=== PATIENT | male | born 1945 | race Caucasian/White ===

== ENCOUNTER 2020-05-26 13:48 | Emergency (ER) | payer MEDICARE, SELFPAY ==
[2020-05-26 13:53] VITALS: BP 122/42; PULSE 64; RESP 20; TEMP 36.9; O2SAT 100
--- NOTE | 2020-05-26 14:16 | ED.EYEPROB ---
HPI - Eye Problem General Chief complaint: Eye Problems Stated complaint: sore by left eye Time Seen by Provider: 05/26/20 14:05 Source: patient Mode of arrival: ambulatory Limitations: no limitations History of Present Illness HPI Narrative: Howard Griffin is 74 yo male with a PMH of CHF, A. fib, chronic anticoagulation, HTN. Comes to express care with a small abscess of the outer canthus of the left eye. Mild redness and tender to touch, no eyelid or infra orbital cellulitis or edema-has been present for 4 days. Patient has history of chronic conditions such as CHF and takes a diuretic Related Data Home Medications Medication Instructions Recorded Confirmed aspirin [Adult Low Dose Aspirin] 81 mg PO DAILY 05/26/20 05/26/20 atorvastatin 05/26/20 carvedilol 05/26/20 furosemide 05/26/20 sacubitril-valsartan [Entresto] 05/26/20 Allergies Allergy/AdvReac Type Severity Reaction Status Date / Time ibuprofen Allergy Unknown Unknown Verified 10/11/18 08:53 shrimp Allergy Unknown Verified 10/11/18 08:54 SHRIMP Allergy Unknown SEVERE Uncoded 05/06/18 12:29 VOMITING Review of Systems Review of Systems: Narrative: CONSTITUTIONAL: Denies fever, chills, sweats. EYES: Denies visual changes, redness, discharge. ENT: Denies rhinorrhea, congestion, sore throat, otalgia. CARDIOVASCULAR: Denies chest pain, palpitations, edema. RESPIRATORY: Denies dyspnea, wheezing, cough GASTROINTESTINAL: Denies abdominal pain, nausea, vomiting, diarrhea. GENITOURINARY: Denies dysuria, hematuria, abnormal discharge SKIN: Denies rash or itching. Left eye other canthus abscess NEUROLOGIC: Denies numbness, or focal weakness. PSYCHIATRIC: Denies anxiety or depression. [facility] Past Medical History Medical History A-fib CHF (congestive heart failure) Chronic anticoagulation HTN (hypertension) Family History Family History Other Cerebrovascular accident Family history of arthritis Family history of congenital heart disease Hypertension Social History Social History Smoking status: Never smoker Second hand tobacco smoke exposure: No Alcohol intake: never Comments At time of signature, I agree with nursing past medical, surgical, social and family history. There is no relevant family history pertinent to the presenting complaint. Exam Narrative: Exam Narrative: GENERAL: This is a well-nourished, well-developed patient, in mild distress. HEAD: normocephalic, atraumatic. EYES: Sclera clear/white. Vision is grossly intact. EARS: External ears normal, Hearing grossly intact. NOSE: External nose normal without nasal discharge, nares without redness, no rhinorrhea. THROAT: Mucous membranes moist, NECK: Neck supple, non-tender CARDIOVASCULAR: Irregular rate and rhythm without murmurs, gallops, or rubs. RESPIRATORY: Clear to auscultation. Breath sounds equal bilaterally. No wheezes, rales, or rhonchi. GASTROINTESTINAL: Abdomen soft, non-tender, SKIN: warm, intact with no suspicious lesions or rash, good texture and turgor. Left outer canthus small abscess one by one with tenderness and looks to be pus filled NEURO: awake, alert, and oriented to person, place and time. There were no obvious focal neurologic abnormalities. Steady gait EXTREMITIES: Normal range of motion. BACK: Nontender without deformity Course Course Emergency Course: I&D of abscess and started on Keflex Follow-up with primary care physician Vital Signs Vital signs: Vital Signs Temperature 98.5 F 05/26/20 13:53 Pulse Rate 64 05/26/20 13:53 Respiratory Rate 05/26/20 13:53 Blood Pressure 122/42 L 05/26/20 13:53 Pulse Oximetry 100 05/26/20 13:53 Temperature 98.5 F 05/26/20 13:53 Pulse Rate 64 05/26/20 13:53 Respiratory Rate 05/26/20 13:53 Blood Pr
== END 2020-05-26 14:34 | disposition home or self-care (01) ==
PROVIDERS: Emergency Provider Nurse Practitioner; PCP Family Medicine
DX: L02.01 Cutaneous abscess of face (principal); I48.91 Unspecified atrial fibrillation; I11.0 Hypertensive heart disease with heart failure; I50.9 Heart failure, unspecified; Z79.01 Long term (current) use of anticoagulants
CPT/HCPCS: 10160; 99213; G0463

== ENCOUNTER 2020-08-25 08:45 | Outpatient (NON) | payer MEDICARE, SELFPAY ==
[2020-08-25 23:02] LABS: SARS-CoV-2 RNA PCR Negative
== END 2020-08-25 08:46 ==
PROVIDERS: PCP Family Medicine; Visit Provider Family Medicine
DX: Z20.828 Contact with and (suspected) exposure to other viral communicable diseases (principal); R51.9 Headache, unspecified
CPT/HCPCS: 87635; C9803; U0003

== ENCOUNTER → 2020-12-13 14:15 | Outpatient (CLI) | payer MEDICARE, SELFPAY ==
--- NOTE | ~2020-12-13 | XR_ITS ---
EXAMINATION: XR knee RT 3V DATE: 12/13/2020 14:30 INDICATION: Right knee pain. TECHNIQUE: 3 views of right knee on 4 radiographs were obtained. COMPARISON: Right knee radiographs 05/17/2018 FINDINGS: Bone alignment is normal. No fracture. There is mild osteoarthritis of medial and patellofe moral compartments. No knee joint effusion. IMPRESSION: 1. Mild right knee osteoarthritis. Reviewed, dictated and finalized at location A.
== END ==
PROVIDERS: PCP Family Medicine; Visit Provider Nurse Practitioner Family
DX: M17.11 Unilateral primary osteoarthritis, right knee (principal)
CPT/HCPCS: 73562

== ENCOUNTER 2022-12-11 12:32 | Outpatient (CLI) | payer MEDICARE, SELFPAY ==
[2022-12-11 20:01] LABS: Alanine Aminotransferase 24 U/L (6-50); Albumin Level 4.2 g/dL (3.5-5.1); Alkaline Phosphatase 104 U/L (38-126); Anion Gap 9 mmol/L (8-16); Aspartate Amino Transferase 21 U/L (17-59); Bilirubin,Total 0.9 mg/dL (0.2-1.3); Blood Urea Nitrogen 21 mg/dL (9-20); Calcium 8.9 mg/dL (8.4-10.2); Carbon Dioxide 27 mmol/L (22-30); Chloride 108 mmol/L (98-107); Estimated Glomerular Filt Rate > 60; Glucose 85 mg/dL (65-110); Potassium 4.3 mmol/L (3.4-5.0); Sodium 144 mmol/L (137-145)
[2022-12-14 19:58] LABS: PSA, Free 0.61 ng/mL; PSA, Total 2.7 ng/mL (<=4.0); Percent Free Prostate Spec Ag 23 % (>25)
== END 2022-12-11 12:33 | disposition home or self-care (01) ==
LOC: ANHGOSHLAB 12:33
PROVIDERS: PCP Family Medicine; Visit Provider Family Medicine
DX: R97.20 Elevated prostate specific antigen [PSA] (principal); E78.5 Hyperlipidemia, unspecified; I25.10 Atherosclerotic heart disease of native coronary artery without angina pectoris; I50.9 Heart failure, unspecified; R73.03 Prediabetes; I12.9 Hypertensive chronic kidney disease with stage 1 through stage 4 chronic kidney disease, or unspecified chronic kidney disease; N18.31 Chronic kidney disease, stage 3a
CPT/HCPCS: 36415; 80053; 83036; 84153; 84154

== ENCOUNTER 2023-02-05 06:05 | Emergency (ER) | payer MEDICARE, SELFPAY ==
--- NOTE | ~2023-02-05 | XR_ITS ---
Clinical Indication: Cough PA and lateral views of the chest: Comparison: 01/07/2019 Findings: The lungs are clear, without evidence of focal consolidation or pleural effusion. Cardiome diastinal silhouette is within normal limits. Bones and soft tissues are unremarkable. Impression: Normal chest. Reviewed, dictated and finalized at [facility]. Impression: Normal chest.
[2023-02-05 06:12] VITALS: BP 135/66; RESP 18; TEMP 36.1; O2SAT 98
--- NOTE | 2023-02-05 06:13 | ECG_ITS ---
Measurements Intervals [place] Rate: 59 P: 68 AL: 214 QRS: -43 QRSD: 162 T: 54 QT: 448 QTc: 445 Interpretive Statements SINUS BRADYCARDIA WITH FIRST DEGREE AV BLOCK LEFT AXIS DEVIATION LEFT BUNDLE BRANCH BLOCK ABNORMAL ECG NO PREVIOUS ECG AVAILABLE FOR COMPARISON Electronically Signed On 02-05-2023 6:43:14 CDT by Joe Mercer D.O.
[2023-02-05 07:01] LABS: Basophils Percent Auto 0.6 % (0.2-1.2); Eosinophils Absolute Auto 0.3 K/mm3 (0-0.3); Eosinophils Percent Auto 5.1 % (0-4.4); Hematocrit 39.7 % (42.0-52.0); Hemoglobin 12.9 g/dL (14.0-18.0); Immature Granulocyte Absolute 0.01 K/mm3 (0.00-0.031); Immature Granulocyte Percent A 0.2 % (0-0.5); Lymphocytes Absolute Auto 1.36 K/mm3 (0.9-3.2); Lymphocytes Percent Auto 26.8 % (18.3-44.2); Mean Corpuscular HGB Conc 32.5 g/dl (32-36); Mean Corpuscular Hemoglobin 32.5 pg (26-34); Mean Platelet Volume 11.9 fl (7.4-10.4); Monocytes Absolute Auto 0.6 K/mm3 (0.1-0.6); Monocytes Percent Auto 11.2 % (2.6-8.5); Neutrophils Absolute Auto 2.9 K/mm3 (1.3-6.7); Neutrophils Percent Auto 56.1 % (45.5-73.1); Platelet Count Result 212 k/mm3 (150-375); Red Blood Count 3.97 M/mm3 (4.6-6.20); Red Cell Distribution Width 14.5 % (11.5-14.5); White Blood Count 5.1 K/mm3 (4.5-10.0)
[2023-02-05 07:12] LABS: Alanine Aminotransferase 34 U/L (6-50); Albumin Level 4.1 g/dL (3.5-5.1); Alkaline Phosphatase 99 U/L (38-126); Anion Gap 8 mmol/L (8-16); Aspartate Amino Transferase 34 U/L (17-59); Bilirubin,Total 0.9 mg/dL (0.2-1.3); Blood Urea Nitrogen 17 mg/dL (9-20); Calcium 8.4 mg/dL (8.4-10.2); Carbon Dioxide 28 mmol/L (22-30); Chloride 105 mmol/L (98-107); Estimated CRCL calculation 65 ml/min; Estimated Glomerular Filt Rate > 60; Glucose 110 mg/dL (65-110); Lipase 57 U/L (23-300); Sodium 141 mmol/L (137-145)
[2023-02-05 07:23] LABS: Troponin I < 0.012 ng/mL (0.000-0.034)
[2023-02-05 07:31] LABS: Prothrombin Time 13.8 Seconds (11.1-14.7)
[2023-02-05 07:33] LABS: Partial Thromboplastin Time 27.9 SECONDS (22.3-36.8)
--- NOTE | 2023-02-05 08:55 | ED.GENADULT ---
HPI - General Adult General Chief complaint: Chest Pain Stated complaint: reports rattling chest with cough Time Seen by Provider: 02/05/23 07:00 History of Present Illness HPI narrative: Patient is a 77-year-old male who presents ER with cough. Reports ongoing over the last week. Feels like there is a rattling in his chest when he lies down. No dyspnea or orthopnea. Has history of CHF. Reports 3 pound weight gain over the last few days. No lower extremity edema. Denies history of pulmonary edema. No exertional chest pain or chest pressure. No dyspnea. He is without fevers or chills or sweats. Has mild sore throat. Related Data Home Medications Medication Instructions Recorded Confirmed aspirin 81 mg tablet,delayed 81 mg PO DAILY 05/26/20 09/02/22 release (Adult Low Dose Aspirin) atorvastatin 80 mg tablet 80 mg PO QPM 05/29/20 09/02/22 carvedilol 6.25 mg tablet 3.25 mg PO BID 07/18/22 09/02/22 furosemide 40 mg tablet 20 mg PO DAILY 07/18/22 09/02/22 Allergies Allergy/AdvReac Type Severity Reaction Status Date / Time ibuprofen Allergy Unknown Unknown Verified 02/05/23 06:22 shrimp AdvReac Severe severe Verified 02/05/23 06:22 vomiting Review of Systems Review of Systems: All systems reviewed & are unremarkable except as noted in HPI and below Constitutional: Constitutional: Denies chills, Denies fatigue and Denies fever(s) ENT: Reports nasal congestion and Reports sore throat Cardiovascular: Cardiovascular: Denies chest pain, Denies rapid heart rate and Denies radiating jaw, neck or arm pain Respiratory: Respiratory: Reports chest congestion, Reports cough, Denies dyspnea and Denies wheezing Gastrointestinal: Gastrointestinal: Denies abdominal pain, Denies nausea and Denies vomiting [facility] Past Medical History Medical History Benign prostatic hyperplasia 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 EF 30% CHF (congestive heart failure) (~03/2016) CKD (chronic kidney disease) stage 3, GFR 30-59 ml/min COVID-19 (~02/2022) Dyslipidemia Essential (primary) hypertension Leg injury (~2015) Circular saw right thigh muscle, above knee Prediabetes Surgical History Surgical History History of hand surgery (~1989) Excision of cyst on dorsum of right hand History of heart artery stent (~2015) History of left inguinal hernia repair (~1994) Hx of cardiac cath (~04/2016) Family History Family History Mother Cerebrovascular accident Dementia Other Family history of arthritis Family history of congenital heart disease Hypertension Social History Social History Smoking status: Never smoker Second hand tobacco smoke exposure: No Alcohol intake: never Substance use: never Substance use type: does not use Lack of Transportation: No Lack of Food: Never True Current Housing: I Have Housing Concerned About Future Housing: No Difficulty Paying Gas/Electric Bills: No Difficulty Paying for Meds: YES Currently Unemployed: No Education: Master's Degree or Higher Difficulty w/ Childcare or Family Care: No Living arrangements: with family Occupation/Education: retired Gender identity (if verbalized by the patient): Male Sexual Orientation (if Verbalized by the Patient): Straight or Heterosexual Agree to blood products: Yes Exam Narrative: GENERAL: Well-appearing, well-nourished, and in no acute distress. HEAD: Normocephalic, atraumatic. EYES: PERRL and EOMI. ENT: Mucous membranes moist. CHEST: Clear to auscultation. No respiratory distress. HEART: Regular rate and rhythm. Normal peripheral pulses. ABDOMEN: Soft, nontender, nondistended. EXTREMITIES: Normal range of motion. No edema. SKIN: Warm, dry, no rash. NEURO: Alert and oriented x3. PSYCH: No
[2023-02-05 09:09] LABS: NT Pro B Type Natriuretic Pept 439 pg/mL (19.9-100)
[2023-02-05 09:28] VITALS: BP 132/76; PULSE 58; RESP 16; O2SAT 98
== END 2023-02-05 09:29 | disposition home or self-care (01) ==
PROVIDERS: Emergency Medicine; Emergency Provider Emergency Medicine; PCP Family Medicine
DX: B34.9 Viral infection, unspecified (principal); I25.10 Atherosclerotic heart disease of native coronary artery without angina pectoris; I13.0 Hypertensive heart and chronic kidney disease with heart failure and stage 1 through stage 4 chronic kidney disease, or unspecified chronic kidney disease; I50.9 Heart failure, unspecified; N18.30 Chronic kidney disease, stage 3 unspecified; E78.5 Hyperlipidemia, unspecified
CPT/HCPCS: 36415; 71046; 80053; 83690; 83880; 84484; 85025; 85610; 85730; 93005; 99284

== ENCOUNTER 2024-05-03 14:10 | Outpatient (CLI) | payer MEDICARE, SELFPAY ==
[2024-05-03 19:33] LABS: Alanine Aminotransferase 20 U/L (6-50); Alkaline Phosphatase 97 U/L (38-126); Anion Gap 11 mmol/L (4-12); Aspartate Amino Transferase 48 U/L (17-59); Bilirubin,Total 1.1 mg/dL (0.2-1.3); Blood Urea Nitrogen 19 mg/dL (9-20); Calcium 8.9 mg/dL (8.4-10.2); Carbon Dioxide 28 mmol/L (22-30); Chloride 101 mmol/L (98-107); Estimated Glomerular Filt Rate > 60; Glucose 88 mg/dL (65-110); Potassium 3.5 mmol/L (3.4-5.0); Sodium 140 mmol/L (137-145)
[2024-05-03 20:06] LABS: Hemoglobin A1C 6.2 % (<5.7)
== END 2024-05-03 14:11 | disposition home or self-care (01) ==
LOC: ANHGOSHLAB 14:11
PROVIDERS: PCP Family Medicine; Visit Provider Family Medicine
DX: R73.03 Prediabetes (principal); I10 Essential (primary) hypertension
CPT/HCPCS: 36415; 80053; 83036

== ENCOUNTER 2024-11-03 15:53 | Outpatient (CLI) | payer MEDICARE, SELFPAY ==
--- NOTE | ~2024-11-03 | XR_ITS ---
HISTORY: M54.50 - Low back pain, unspecified COMPARISON: None. TECHNIQUE: 3 view lumbar spine. FINDINGS: Lumbar vertebral bodies are normally aligned. There are 5 non-rib bearing lumbar vertebral bodies. Vertebral body heights are well maintained. Degenerative disease is noted with osteophyte formation, and disc space narrowing primarily at the le ta of T12/L1 and L1/L2. Grade 1 anterolisthesis of L5 onto S1. There are no lytic or sclerotic lesions. Densely calcified atherosclerotic disease within the infrarenal abdominal aorta, as detailed above. Remaining paraspinal soft tissues are otherwise unremarkable. IMPRESSION: Degenerative disease, without acute compression fracture, as detailed above. Reviewed, dictated and finalized at location A. [facility]
== END 2024-11-03 15:54 | disposition home or self-care (01) ==
LOC: GOSHIMG 15:54
PROVIDERS: PCP Family Medicine; Visit Provider Family Medicine
DX: M51.35 Other intervertebral disc degeneration, thoracolumbar region (principal); M51.369 Other intervertebral disc degeneration, lumbar region without mention of lumbar back pain or lower extremity pain
CPT/HCPCS: 72100

== ENCOUNTER 2025-05-16 14:17 | Outpatient (CLI) | payer MEDICARE, SELFPAY ==
--- OUTSIDE RECORDS SUMMARY | 2025-05-16 14:37 | XMS_ITS | Clinical Summary ---
Author Organization [facility] Address [address], [address] [address] Phone Care Team Providers Care Infertility Medical Assistant Name Role Phone Stephen Martinez DO Unavailable [phone] Morena Jarquin MD Primary Care Provider Medications atorvastatin (LIPITOR) 20 MG Tablet Take 20 mg by mouth daily. Active sacubitril-valsa rtan (ENTRESTO) 49-51 MG Tablet Take 1 Tab by mouth 2 times daily. Active carvedilol (COREG) 6.25 MG Tablet Take 6.25 mg by mouth 2 times daily. Active furosemide (LASIX) 40 MG Tablet Take 40 mg by mouth daily. Active aspirin EC 81 MG Tablet Delayed Response Take 81 mg by mouth daily. Active Immunizations Immunization Administration Dates Next Due Covid-19, Mrna, Lnp-s, PF, 1 00 mcg/0.5 mL Dose (Moderna) 12/17/2020,11/14/2020 Social History Tobacco Use Types Packs/Day Years Used Date Smoking Tobacco: Never Assessed Sex and Gender Information Value Date Recorded Sex Assigned at Not on file Legal Sex Male 10:24 AM CDT Gender Identity Not on file Sexual Orientation Not on file Plan of Treatment Health Maintenance Due Date Last Done Comments Hepatitis C Virus (HCV) Screening 1945 Zoster Immunization (1 of 2) 1994 Respiratory Syncytial Virus (RSV) Immunization (Adult) (1 - 1-dose 75+ series) 2019 Pneumococcal Immunization (5 0+ years) (2 of 2 - PCV20 or PCV21) 06/29/2021 06/29/2020 SARS-COV-2 Immunization ( season) 2024 12/17/2020, 11/14/2020 Influenza Immunization (#1) 2025 06/29/2020 Colonoscopy Discontinued 05/12/2018 Colorectal Cancer Screening Discontinued DTaP/Tdap/Td Immunization Discontinued 06/29/2020 Pneumococcal Immunization Combined Discontinued 06/29/2020 TdaP Immunization Completed 06/29/2020 Cologuard Discontinued Hepatitis B Immunization Aged Out No longer eligible based on patient's age to complete this topic Human Papillomavirus (HPV) Immunization Aged Out No longer eligible based on patient's age to complete this topic Immunochemical Fecal Occult Blood Discontinued Meningococcal Immunization (ACWY) Aged Out No longer eligible based on patient's age to complete this topic Rotavirus Immunization Aged Out No lo nger eligible based on patient's age to complete this topic Procedures Procedure Name Priority Date/Time Associated Diagnosis Comments COLONOSCOPY Routine 05/12/2018 from Last 3 Months or Most Recently Relevant to Health Maintenance Results * COLONOSCOPY (05/12/2018) Stephen Martinez DO PROCEDURE/MINOR SURGICAL ORDERA BLES Final Result from Last 3 Months or Most Recently Relevant to Health Maintenance Insurance MEDICARE C [employer] Care Teams Infertility Medical Assistant Relationship Specialty Start Date End Date Morena Jarquin MD PCP - General Family Medicine 04/06/18 Stephen Martinez DO Gastroenterology 07/01/16
--- OUTSIDE RECORDS SUMMARY | 2025-05-16 14:37 | XMS_ITS | Clinical Summary ---
Author Organization [facility] Address [address] [place] [address] Care Team Providers Care Signal Constructor Name Role Phone Morena Jarquin MD Primary Care Provider Allergies Active Allergy Reactions Criticality Noted Date Comments Ibuprofen Rash,Stomach upset High multiple mouth sores Shellfish Containing Products Shrimp Nausea & Vomiting Low Medications aspirin 81 mg tablet Take 1 tablet (81 mg total) by mouth daily Active tamsulosin (FLOMAX) 0.4 mg extended release capsule Take 1 capsule (0.4 mg total) by mouth daily 90 capsule 11 1 Active calcium citrate-vitami n D3 (CITRACAL WITH D) 315 mg-6.25 mcg (250 unit) per tablet Take 1 tablet by mouth daily Active cyanocobalamin (Vitamin B-12) 1,000 mcg sublingual tablet Take 1 tablet (1,000 mcg total) by mouth every other day 4 Active atorvastatin (LIPITOR) 80 mg tablet TAKE 1 TABLET EVERY EVENING 90 tablet 3 5 Active furosemide (LASIX) 40 mg tablet Take 1 tablet (40 mg total) by mouth daily 90 tablet 3 5 12/15/19 26 Active carvediloL (COREG) 6.25 mg tablet Take 1 tablet (6.25 mg total) by mouth 2 (two) times a day with meals 60 tablet 11 5 Active finasteride (PROSCAR) 5 mg tablet Take 1 tablet (5 mg total) by mouth daily Active Entresto 49-51 mg tablet TAKE 1 TABLET TWICE DAILY 180 tablet 3 5 Active clopidogreL (PLAVIX) 75 mg tablet TAKE 1 TABLET EVERY DAY 90 tablet 3 5 Active clopidogreL (PLAVIX) 75 mg tablet TAKE 1 TABLET EVERY DAY 90 tablet 3 4 05/10/20 25 Discontinued Entresto 49-51 mg tablet TAKE 1 TABLET TWICE DAILY 180 tablet 3 5 05/03/20 25 Discontinued Active Problems Problem Noted Date Diagnosed Date Nonischemic cardiomyopathy 05/08/2023 Incontinence of feces 03/10/2023 Essential hypertension 05/02/2022 Other hyperlipidemia 05/02/2022 Abnormal stress test 03/28/2022 Overview (03/28/2022): Added automatically from request for surgery [id number] COVID 08/12/2021 Urinary frequency 02/01/2020 Overview (02/01/2020): Will add for flomax 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 SUCCESSFUL STENTING OF THE PROXIMAL AND MID LEFT ANTERIOR DESCENDING USING 3.25 AND 2.75 MM DRUG-ELUTING STENTS RESPECTIVELY DESCRIBED. 2. SUCCESSFUL VASCULAR ACCESS CLOSURE. Cardiomyopathy, ischemic 11/30/2019 Assessment & Plan (11/30/2019 10:[address] BAILIFF OR SHERIFF): On Entresto, 01/21/19, EF 45-50%. Will re-evaluate 04/15/16 EF 25-30% Other chest pain 11/30/2019 Overview (11/30/2019): midsternal chest pain concerning of progression of CAD Assessment & Plan (02/01/2020 1:12 PM CDT): No further complaints of pain, negative stress 01/26/20 Right groin pain 04/01/2018 Assessment & Plan (04/01/2018 10:24 AM CDT): Pt does not have a hernia at this time although his right groin does exhibit some weakness. 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 (Primary Dx); Other hyperlipidemia; Nonischemic cardiomyopathy (HCC); Congestive heart failure, unspecified HF chronicity, unspecified heart failure type (HCC) 02/23/2025 1:00 PM CDT - 02/23/2025 2:05 PM CDT Surgery [facility] Cardiac Catheterization [address] [place] [id number] Rohith Bai MD LEFT HEART CATHETERIZATION WITH CORONARY ANGIOGRAPHY AND WITH OR WITHOUT LEFT VENTRICULOGRAM [id number] 02/23/2025 11:52 AM CDT - 02/23/2025 4:55 PM CDT Hospital Encounter [facility] Cardiac Catheterization [address] [place] [id number] Rohith Bai MD 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 Discharge Disposition: Discharge to home or self care 02/22/2025 6:59 AM CDT - 02/22/2025 11:59 PM CDT Hospital Encounter [facility] Cardiology [address] [place] [id number] 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 Discharge Disposition: Discharge to home or self care 02/22/2025 6:55 AM CDT Lab [address] [phone] 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 from Last 3 Months Surgical History Surgery Date Site/Laterality Comments INGUINAL HERNIA REPAIR Left KNEE SURGERY 09/28/2014 - 09/27/2015 Left severe laceration from electric saw SOFT TISSUE CYST EXCISION Right hand CORONARY ANGIOPLASTY WITH STENT PLACEMENT 09/28/2015 - 09/27/2016 CATARACT EXTRACTION EXTRACAPSULAR W/ INTRAOCULAR LENS IMPLANTATION Bilateral COLONOSCOPY 09/28/2017 - 09/27/2018 CARDIAC CATHETERIZATION 02/23/2025 N/A Procedure: LEFT HEART CATHETERIZATION WITH CORONARY ANGIOGRAPHY AND WITH OR WITHOUT LEFT VENTRICULOGRAM [id number]; Surgeon: Rohith Bai MD; Location: [facility] C[facility] COMPLI[facility] TECHNIC[facility]; Service: Cardiovascular; Laterality: N/A; Medical devices from this surgery are in the Medical Devices section. Medical History Medical History Date Comments Coronary artery disease Congestive heart failure (HCC) Ischemic cardiomyopathy Chest pain Atrial fibrillation (HCC) Family History Medical History Relation Name Comments Heart attack Father Stroke Mother Arthritis Other Heart disease Other Relation Name Status Comments Father Mother Other Social History Tobacco Use Types Packs/Day Years Used Date Smoking Tobacco: Never Smokeless Tobacco: Never Tobacco Cessation:Counseling Given: Not Answered Alcohol Use Standard Drinks/Week Comments No 0 (1 standard drink = 0.6 oz pur e alcohol) AUDIT-C Answer Date Recorded Q1: How often do you have a drink containing alcohol? Never 05/21/2023 Q2: How many drinks containi ng alcohol do you have on a typical day when you are drinking? Patient does not drink Q3: How often do you have si x or more drinks on one occasion? Never 05/21/2023 Personal Safety Answer Date Recorded Have you ever been in or are you currently in a harmful physical or emotional relationship or is someone making you feel afraid or unsafe? Denies 02/23/2025 Sex and Gender Information Value Date Recorded Sex Assigned at Not on file Legal Sex Male 9:[address] BAILIFF OR SHERIFF Gender Identity Male 01/31/2022 11:55 AM CDT Sexual Orientation Not on file Obstetrics History Last Filed Vital Signs Vital Sign Reading Time Taken Comments Blood Pressure 97/55 03/06/2025 2:49 PM CDT Pulse 64 03/06/2025 2:49 PM CDT Temperature 37.2 C (99 F) 02/23/2025 12:13 PM CDT Respiratory Rate 18 03/06/2025 2:49 PM CDT Oxygen Saturation 95% 02/23/2025 4:30 PM CDT Inhaled Oxygen Concentration - - Weight 90.7 kg (200 lb) 03/06/2025 2:49 PM CDT Height 182.9 cm (6') 03/06/2025 2:49 PM CDT Body Mass Index 27.12 03/06/2025 2:49 PM CDT Plan of Treatment Health Maintenance Due Date Last Done Comments Depression Screening 1945 Hepatitis B Screening 1962 Zoster Vaccine (1 of 2) 1994 Well Visit 65+ 2009 Pneumococcal vaccine 65+ (2 of 2 - PPSV23, PCV20, or PCV21) 08/24/2020 06/29/2020 Covid-19 Vaccine (3 - season) 2024, 11/14/2020 Influenza Vaccine (#1) 2025 06/29/2020 Fall Risk Assessment 02/23/2026 02/23/2025 DTaP/Tdap/Td Vaccine (2 - Td or Tdap) 06/29/203010/2019 Colon Cancer Screening-CT Colonography Discontinued Colon Cancer Screening-Colonoscopy Discontinued 2022 Colon Cancer Screening-DNA Stool Discontinued 05/21/20 Colon Cancer Screening-FIT Discontinued 05/21/2023 Colon Cancer Screening-FOBT Discontinued 05/21/2023 Colon Cancer Screening-Sigmoidoscopy Discontinued 04/29 Colorectal Cancer Screening Discontinued Medical Devices Implanted Type Area Returned Case Inspector Device Identifier Shelf Expiration Date Model / Serial / Lot [employer] Angio-Seal Evolution 6fr Vascular Closure [id number] - [id number] Implanted:Qty: 1 on 04/17/2022 by Rohith Bai MD at [facility] Other - see comments [employer] 09/27/2022 [id number] / / [id number] [employer] Jose L Angio-Seal Vip 6fr Closere Device [id number] - [id number] Implanted:Qty: 1 on 02/23/2025 by Rohith Bai MD at [facility] [employer] 06/15/2025 [id number] / / [id number] Procedures Procedure Name Priority Date/Time Associated Diagnosis Comments LEFT HEART CATHETERIZATION WITH CORONARY ANGIOGRAPHY AND WITH AND WITHOUT LEFT VENTRICULOGRAM Routine 02/23/2025 2:09 PM CDT 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 ECG 12-LEAD Routine 02/22/2025 7:25 AM CDT 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 EGFR Routine 02/22/2025 7:08 AM CDT 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 DIFFERENTIAL AUTO Routine 02/22/2025 7:0 8 AM CDT 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 CBC WITH AUTO DIFFERENTIAL Routine 02/22/2025 7:08 AM CDT 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 BASIC METABOLIC PANEL Routine 02/22/2025 7:08 AM CDT 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 PROTIME-INR Routine 02/22/2025 7:08 AM CDT 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 The stent was patent by followup catheterization in 2021. The patient now presents with decreased ejection fraction by echo and multiple PVCs. He was treated medically and referred for catheterization. INDICATION FOR PROCEDURE Cardiomyopathy, coronary artery disease. PROCEDURE PERFORMED Left heart catheterization, selective coronary angiography, left ventriculography, vascular access closure. After obtaining informed consent, patient was brought to the cardiac engineering lab technician suite. He was prepped and draped in usual sterile fashion. Conscious sedation was administered by the engineering lab technician staff under my supervision. A total of 3 mg of Versed and 100 mcg of fentanyl and 25 mg of Benadryl were given in divided doses. See procedure log for further details. Total sedation time 25 minutes. A 5-Sami sheath was inserted in the right femoral artery. Selective coronary cannulation was with standard Radha catheters. Left ventriculography was performed in the TINEO projection using pigtail followed by left heart pullback. At the end of procedure, the arterial sheath was removed and vascular access was closed using Angio-Seal with good hemostasis. FINDINGS: HEMODYNAMICS: LV pressure was 105/10, ascending aortic pressure 105/45. LEFT VENTRICULOGRAPHY: This showed global systolic function of lower limits of normal. Estimated ejection fraction 55%. RIGHT CORONARY ARTERY: The right coronary artery was not a dominant vessel, had 90% mid stenosis. LEFT CORONARY ARTERY: The left main coronary artery was angiographically normal. The left anterior descending had patent previously implanted stent in the mid segment followed by 40% distal stenosis. The medium-sized diagonal was jailed by the stent and had 60% ostial stenosis. The ramus was angiographically normal. The circumflex was the dominant vessel, It had 30% stenosis and then 50% stenosis before takeoff of a large posterior descending artery. The 1st obtuse marginal had 30% ostial stenosis. The 2nd obtuse marginal had 40% mid stenosis. The 1st posterolateral branch was a very large branching vessel, was angiographically normal as well as the posterior descending branch. IMPRESSION 1. Angiographically mild to moderate coronary artery disease with patent previously implanted stent in the left anterior descending. 2. Global left ventricular systolic function lower limits of normal. Estimated ejection fraction 55%. 3. Normal left ventricular diastolic pressure. 4. Successful vascular access closure. CARE PLAN There is no high-grade lesions to warrant interventions. LV function is much better than previously seen on echo. Continue medical therapy. No need for LifeVest. Rohith Bai MD Job ID/Internal Job ID: [id number] us Rohith Bai MD CV CARDIAC CATH PROCEDURES [place] Result * ECG 12 lead (02/22/2025 7:25 AM CDT) 02/22/2025 7:26 AM CDT Narrative [facility] - 02/22/2025 9:11 AM CDT Vent Rate: 58 bpm RR Interval: 1020 msec [place] Interval: 228 msec QRS Duration: 171 msec QT Interval: 458 msec QTC Interval: 456 msec P-R-T Hanson: 63 - -50 - 70 degrees IMPRESSION: SINUS BRADYCARDIA WITH FIRST DEGREE AV BLOCK LEFT AXIS DEVIATION [QRS AXIS < -30] LEFT BUNDLE BRANCH BLOCK [120+ ms QRS DURATION, 80+ ms Q/S IN V1/V2, 85+ ms R IN I/aVL/V5/V6] ABNORMAL ECG NO CHANGE FROM PREVIOUS TRACING NOTED Electronically Signed By: Rohith Bai MD us Rohith Bai MD ECG ORDERABLES Final Result [facility] * eGFR (02/22/2025 7:08 AM CDT) eGFR 76 >=60 mL/min/1. 73 m2 Comment: Interpretive Data Reference Interval Normal >/= 90 mL/min/1.73m2 Mildly decreased* 60 - 89 mL/min/1.73m2 Mildly to moderately decreased 45 - 59 mL/min/1.73m2 Moderately to severely decreased 30 - 44 mL/min/1.73m2 Severely decreased 15 - 29 mL/min/1.73m2 Kidney Failure < 15 mL/min/1.73m2 *Relative to young adult level Estimated glomerular filtration rate is determined by the 2020 CKD-EPI equation recommended by the National Kidney Foundation (A Unifying Approach to GFR Estimation: Recommendations of the NKF-ASK Task Force on Reassessing the Inclusion of Race in Diagnosing Kidney Disease, JASN 202). The CKD-EPI equation should not be used for patients with unstable renal function and has not been validated in children and those over 70. Current interpretive data was last reviewed 2021. Blood 02/22/2025 7:08 AM CDT 02/22/2025 7:43 AM CDT us Rohith Bai MD LAB BLOOD ORDERABLES Final Resu lt [facility] ([place]) 1 [facility] Department of Laboratories [place], [place] [id number] * Differential, auto (02/22/2025 7:08 AM CDT) Neutrophil abs 3.54 1.50 - 6.50 K/cumm Imm gran abs 0.03 0.00 - 0.10 K/cumm [facility] ([place]) Lymphocyte abs 3.14 0.80 - 3.30 K/cumm [facility] ([place]) Monocyte abs 0.74 0.20 - 0.80 K/cumm [facility] ([place]) Eosinophil abs 0.12 0.00 - 0.50 K/cumm [facility] ([place]) Basophil abs 0.03 0.00 - 0.10 K/cumm [facility] ([place]) Neutrophil pct 46.6 % [facility] ([place]) Comment: Interpretive Data Percent cell count reference ranges are not reported, since discordance with absolute values may lead to misinterpretation of CBC data. Current Interpretive Data was last revised on 2018. Imm gran pct 0.4 % [facility] ([place]) Comment: Interpretive Data Percent cell count reference ranges are not reported, since discordance with absolute values may lead to misinterpretation of CBC data. Current Interpretive Data was last revised on 2018. Lymphocyte pct 41.3 % [facility] ([place]) Comment: Interpretive Data Percent cell count reference ranges are not reported, since discordance with absolute values may lead to misinterpretation of CBC data. Current Interpretive Data was last revised on 2018. Monocyte pct 9.7 % [facility] ([place]) Comment: Interpretive Data Percent cell count reference ranges are not reported, since discordance with absolute values may lead to misinterpretation of CBC data. Current Interpretive Data was last revised on 2018. Eosinophil pct 1.6 % [facility] ([place]) Comment: Interpretive Data Percent cell count reference ranges are not reported, since discordance with absolute values may lead to misinterpretation of CBC data. Current Interpretive Data was last revised on 2018. Basophil pct 0.4 % [facility] ([place]) Comment: Interpretive Data Percent cell count reference ranges are not reported, since discordance with absolute values may lead to misinterpretation of CBC data. Current Interpretive Data was last revised on 2018. Blood 02/22/2025 7:08 AM CDT 02/22/2025 7:43 AM CDT us Rohith Bai MD LAB BLOOD ORDERABLES Final Resu lt [facility] ([place]) 1 [facility] Department [place] [address] * (ABNORMAL) CBC with auto differential (02/22/2025 7:08 AM CDT) WBC 7.60 3.80 - 9.90 K/cumm Hgb 12.5(L) 13.0 - 17.5 g/dL [facility] ([place]) Hct 38.2(L) 38.9 - 50.3 % [facility] ([place]) Plt 206 150 - 400 K/cumm [facility] ([place]) MPV 11.6 9.1 - 12.3 fL [facility] ([place]) RBC 3.72(L) 4.30 - 5.80 M/cumm [facility] ([place]) MCV 102.7(H) 81.3 - 96.4 fL [facility] ([place]) MCH 33.6(H) 27.1 - 33.3 pg [facility] ([place]) MCHC 32.7 32.3 - 35.7 g/dL [facility] ([place]) RDW CV 14.9 11.1 - 14.9 % [facility] ([place]) RDW SD 56.0(H) 35.7 - 48.1 fL [facility] ([place]) NRBC abs 0.00 0.00 - 0.01 K/cumm [facility] ([place]) Blood 02/22/2025 7:08 AM CDT 02/22/2025 7:43 AM CDT Rohith Bai MD LAB BLOOD ORDERABLES Final Resu lt [facility] ([place]) 1 [facility] [place] [address] * Protime-INR (02/22/2025 7:08 AM CDT) PT 11.6 9.7 - 13.0 sec [facility] ([place]) INR 1.07 0.90 - 1.20 [facility] ([place]) Comment: Interpretive data Oral anticoagulant therapeutic ranges: Venous thromboembolism prophylaxis or treatment: 2.0-3.0 CARDIOLOGY Standard range: 2.0-3.0 High-intensity range: 2.5-3.5 Refer to indication-specific guidelines for appropriate target ranges for prosthetic heart valve replacement. Current interpretive data was last revised on 2019. Blood 02/22/2025 7:08 AM CDT 02/22/2025 7:43 AM CDT Rohith Bai MD LAB BLOOD ORDERABLES Final Resu lt [facility] ([place]) 1 [facility] [place] [address] * Basic metabolic panel (02/22/2025 7:08 AM CDT) Sodium 145 135 - 145 mmol/L Potassium, pl 4.1 3.3 - 4.9 mmol/L [facility] ([place]) Chloride 105 97 - 110 mmol/L [facility] ([place]) CO2 27 22 - 32 mmol/L [facility] ([place]) Anion gap 13 2 - 15 mmol/L [facility] ([place]) BUN 21 6 - 25 mg/dL [facility] ([place]) Creatinine 1.00 0.80 - 1.30 mg/dL [facility] ([place]) Glucose 126 70 - 199 mg/dL [facility] ([place]) Comment: Interpretive Data Fasting glucose >/= 126 mg/dl is diagnostic for diabetes. Fasting is defined as no caloric intake for at least 8 hours. Fasting glucose between 100 mg/dl to 125 mg/dl is diagnostic of prediabetes. In a patient with classic symptoms of hyperglycemia or hyperglycemic crisis, a random glucose >/= 200 mg/dl is diagnostic for diabetes. In the absence of unequivocal hyperglycemia, results should be confirmed by repeat testing. The classification and Diagnosis of Diabetes Diabetes Care 2021; 46: S19-S40. Current interpretive data was last revised 2022. Calcium 8.9 8.5 - 10.3 mg/dL [facility] ([place]) Blood 02/22/2025 7:08 AM CDT 02/22/2025 7:43 AM CDT Rohith Bai MD LAB BLOOD ORDERABLES Final Resu lt [facility] ([place]) 1 [facility] Department [place] [address] * COLONOSCOPY (05/21/2023 10:44 AM CDT) Anatomical Region Laterality Modality Other Narrative Procedure Note Carlos Cohen MD - 05/21/2023 10:44 AM CDT ENDOSCOPY LAB Patient Name: Howard Griffin Procedure Date: 05/21/2023 10:44 AM Date of : 1945 Admit Type: Outpatient Age: 77 Gender: Male Attending MD: Carlos Cohen M.D. Room: [facility] ENDOSCOPY ROOM 02 Note Status: Finalized Procedure: Colonoscopy Indications: Last colonoscopy 5 years ago, Change in bowelhabits Providers: Carlos Cohen M.D. Referring MD: Medicines: Monitored Anesthesia Care Complications: No immediate complications. Estimated Blood Loss: Estimated blood loss: none. Procedure: Pre-Anesthesia Assessment: - Immediately prior to administration ofmedications, the patient was re-assessed for adequacy to receive sedatives. The benefits, risks and alternatives of theprocedure and sedation were discussed and informed consentwas obtained. All questions were answered. Please referto the signed informed consent document in the medical record. The scope was passed under direct vision.The [id number] was introduced through the anusand advanced to the cecum, identified by appendiceal orifice and ileocecal valve. The colonoscopy was performed without difficulty. The patient tolerated the procedure well. The quality of the bowel preparation was evaluated using the BBPS (BostonBowel Preparation Scale) with scores of: Right Colon = 2 (minor amount of residual staining, small fragmentsof stool and/or opaque liquid, but mucosa seen well), Transverse Colon = 2 (minor amount of residual staining, small fragments of stool and/or opaque liquid, but mucosa seen well) and Left Colon = 3 (entire mucosa seen well with no residual staining, small fragments of stool or opaque liquid). Thetotal BBPS score equals 7. The quality of the bowel preparation was good. The bowel preparation usedwas SUPREP via split dose instruction. Findings: The perianal and digital rectal examinations were normal. A 2 mm polyp was found in the ascending colon. The polyp was sessile. The polyp was removed with a jumbo cold forceps. Resection andretrieval were complete. A 7 mm polyp was found in the ascending colon. The polyp was sessile. The polyp was removed with a hot snare. Resection and retrieval were complete. The exam was otherwise without abnormality. Impression: - One 2 mm polyp in the ascending colon, removedwith a jumbo cold forceps. Resected and retrieved. - One 7 mm polyp in the ascending colon, removedwith a hot snare. Resected and retrieved. - The examination was otherwise normal. Recommendation: - Await pathology results. - Repeat colonoscopy in 5 years for surveillance. Carlos Cohen MD Carlos Cohen M.D. 05/21/2023 11:27:27 AM Number of Addenda: 0 Note Initiated On: 05/21/2023 10:44 AM Carlos Cohen MD ENDOSCOPY PROCEDURES Fi nal Result from Last 3 Months or Most Recently Relevant to Health Maintenance Insurance [employer] MEDICARE PPO [employer] MED[employer]ARE PPO [employer] CHO[employer] MEDICARE PPO Advance Directives For more information, please contact: [phone] * Full Code (Latest Code Status on File) Date Activated Date Inactivated Comments 02/23/2025 2:17 PM 02/23/2025 8:55 PM * Full Code Date Activated Date Inactivated Comments 05/21/2023 9:31 AM 05/21/2023 4:04 PM * Full Code Date Activated Date Inactivated Comments 04/17/2022 9:18 AM 04/17/2022 4:33 PM Care Teams Signal Constructor Relationship Specialty Start Date End Date Morena Jarquin MD PCP - General Family Practice 11/30/19
[2025-05-16 19:19] LABS: Alanine Aminotransferase 19 U/L (6-50); Albumin Level 4.1 g/dL (3.5-5.1); Alkaline Phosphatase 88 U/L (38-126); Anion Gap 6 mmol/L (4-12); Aspartate Amino Transferase 50 U/L (17-59); Bilirubin,Total 1.2 mg/dL (0.2-1.3); Blood Urea Nitrogen 21 mg/dL (9-20); Calcium 9.3 mg/dL (8.4-10.2); Carbon Dioxide 32 mmol/L (22-30); Chloride 103 mmol/L (98-107); Estimated Glomerular Filt Rate 59; Glucose 100 mg/dL (65-110); Potassium 3.6 mmol/L (3.4-5.0); Sodium 141 mmol/L (137-145); Total Protein 7.4 g/dL (6.3-8.2)
[2025-05-16 19:20] LABS: Iron 79 ug/dL (49-181)
[2025-05-16 19:32] LABS: Percent Iron Saturation 26 % (20-50)
[2025-05-16 20:03] LABS: Ferritin 58.70 ng/mL (11.1-264)
[2025-05-16 20:31] LABS: Vitamin B12 955.0 pg/mL (239-931)
[2025-05-16 20:40] LABS: Hemoglobin A1C 6.2 % (<5.7)
== END 2025-05-16 14:18 | disposition home or self-care (01) ==
LOC: ANHGOSHLAB 14:18
PROVIDERS: PCP Family Medicine; Visit Provider Family Medicine
DX: D64.9 Anemia, unspecified (principal); E11.9 Type 2 diabetes mellitus without complications; I10 Essential (primary) hypertension
CPT/HCPCS: 36415; 80053; 82607; 82728; 82746; 83036; 83540; 83550